=== PATIENT | female | born 2005 | race Caucasian/White ===

== ENCOUNTER 2023-04-07 12:21 | Emergency (ER) | payer OTHER, SELFPAY ==
[2023-04-07 12:31] VITALS: BP 113/91; PULSE 70; RESP 17; TEMP 36.5; O2SAT 96
[2023-04-07 14:30] VITALS: BP 122/50; PULSE 88; RESP 18; TEMP 36.1; O2SAT 98
--- NOTE | 2023-04-07 14:30 | PC.NURSE ---
Pt brought back to room 18 to be evaluated by SHIFTMAN
--- NOTE | 2023-04-07 14:38 | ED.SKABFB ---
HPI - Skin/Abscess/Foreign Bdy General Chief complaint: Skin/Abscess/Foreign Body Stated complaint: possible spider bite Time Seen by Provider: 04/07/23 14:37 Source: patient Mode of arrival: ambulatory Limitations: no limitations History of Present Illness HPI narrative: Chastity is a 17 year old female patient presenting to the ED with c/o a possible spider bite to the right posterior thigh. She reports she noticed the bite approx 3-4 days ago. Also reports fever, nausea, and vomiting. Denies any abdomen pain just soreness from dry heaving today. Vomited 6 times total yesterday but non-today. Patient did not measure her temp but felt feverish. She denies any urinary symptoms. Last BM was yesterday and normal. Was seen in [facility] and they sent her here as they can not due labs. Related Data Allergies Allergy/AdvReac Type Severity Reaction Status Date / Time No Known Allergies Allergy Verified 04/07/23 14:32 Review of Systems Review of Systems: All systems reviewed & are unremarkable except as noted in HPI and below Exam Const: General: healthy appearing, no acute distress and alert HENMT: Head: normal to inspection Ears: external ears normal Face/Nose/Sinus: Normal external nose present and Normal nares present Face and sinus: normal facial exam Mouth: Yes Normal oral and palatal mucosa present and Yes moist mucous membranes Teeth and gingiva: dentition normal Throat: posterior oropharynx normal and uvula midline Eyes: Conjunctivae: conjunctivae normal Pupils: Equal, round and reactive pupils present EOM: EOMs intact bilaterally Direct Ophthalmoscopy: no photophobia Neck: Neck: normal visual inspection and no lymphadenopathy Chest: Chest palpation & inspection: normal inspection of the chest Resp: Effort & Inspection: normal respiratory effort Cardio: Rate: regular rate Rhythm: regular rhythm Other: no murmur, s1 and s2 normal GI: GI Palp: Yes Soft to palpation Auscultation: normal bowel sounds Other: soft, non-distended, generalized tenderness to palpation, non tender to palpation over bladder, no CVAT tenderness, no organomegly. Skin: General skin exam: normal color Rashes: no rashes Wounds: wounds noted Other: right posterior lateral thigh with redness and open blistered like area measuring approx [id number]. No obvious drainage at this time. Itching and mild tenderness to palpation, no induration. Course Vital Signs Vital signs: Vital Signs Temperature 36.5 C 04/07/23 12:31 Pulse Rate 70 04/07/23 12:31 Respiratory Rate 17 04/07/23 12:31 Blood Pressure 113/91 H 04/07/23 12:31 Pulse Oximetry 96 04/07/23 12:31 Oxygen Delivery Room Air 04/07/23 12:31 Temperature 36.1 C L 04/07/23 14:30 Pulse Rate 88 04/07/23 14:30 Respiratory Rate 18 04/07/23 14:30 Blood Pressure 122/50 L 04/07/23 14:30 Pulse Oximetry 98 04/07/23 14:30 Oxygen Delivery Room Air 04/07/23 12:31 MDM - Skin/Abscess/Foreign Bdy MDM Narrative Medical decision making narrative: At the time of visit patient is resting in the exam room. Area of concern is non-indurated, mild red without present discharge. CBC,CMP performed to check for electrolyte imbalance/infection. No urinary symptoms so urine was not tested at this time. CBC and CMP unremarkable. Will discharge home with mupirocin cream and zofran. Return precautions were reviewed with patient. Supportive measures were discussed and she voiced understanding of discharge instructions. Differential Diagnosis Differential diagnosis: Likely abscess of skin or subcutaneous tissue, urticaria, cellulitis, eczema, insect bites, contact dermatitis and other (acute nausea and vomiting) Lab Data 04/07/23 14:42 04/07/23 14:42 Labs: Lab Results 04/07/23 Range/Units 14:42 WBC 7.3 (4.5-10.0) K/mm3 RBC 4.84 (4.2-5.4) M/mm3 Hgb 13.0 (12.0-15.0) g/dL Hct 40.1 (37.0-47.0) % MCV 82.9
[2023-04-07] MEDS: ONDANSETRON HCL ODT 4 MG TABLET PO (14:43)
[2023-04-07 14:52] LABS: Basophils Absolute Auto 0.1 K/mm3 (0.0-0.1); Basophils Percent Auto 1.1 % (0.2-1.2); Eosinophils Absolute Auto 0.5 K/mm3 (0-0.3); Eosinophils Percent Auto 6.6 % (0-4.4); Hematocrit 40.1 % (37.0-47.0); Immature Granulocyte Absolute 0.02 K/mm3 (0.00-0.031); Immature Granulocyte Percent A 0.3 % (0-0.5); Lymphocytes Absolute Auto 2.46 K/mm3 (0.9-3.2); Lymphocytes Percent Auto 33.8 % (18.3-44.2); Mean Corpuscular HGB Conc 32.4 g/dl (32-36); Mean Corpuscular Hemoglobin 26.9 pg (26-34); Mean Corpuscular Volume 82.9 fl (80-100); Mean Platelet Volume 9.7 fl (7.4-10.4); Monocytes Absolute Auto 0.8 K/mm3 (0.1-0.6); Monocytes Percent Auto 11.1 % (2.6-8.5); Neutrophils Absolute Auto 3.4 K/mm3 (1.3-6.7); Neutrophils Percent Auto 47.1 % (45.5-73.1); Platelet Count Result 221 k/mm3 (150-375); Red Blood Count 4.84 M/mm3 (4.2-5.4); Red Cell Distribution Width 12.9 % (11.5-14.5); White Blood Count 7.3 K/mm3 (4.5-10.0)
[2023-04-07 15:02] LABS: Alanine Aminotransferase 19 U/L (6-35); Albumin Level 4.6 g/dL (3.7-5.6); Alkaline Phosphatase 52 U/L (45-116); Anion Gap 7 mmol/L (8-16); Aspartate Amino Transferase 23 U/L (14-36); Bilirubin,Total 0.9 mg/dL (0.2-1.3); Blood Urea Nitrogen 9 mg/dL (8-21); Calcium 8.8 mg/dL (8.9-10.7); Carbon Dioxide 26 mmol/L (22-30); Chloride 105 mmol/L (98-107); Estimated CRCL calculation 89 ml/min; Estimated Glomerular Filt Rate > 60; Glucose 86 mg/dL (65-110); Potassium 3.7 mmol/L (3.4-5.0); Sodium 138 mmol/L (134-143)
== END 2023-04-07 15:34 | disposition home or self-care (01) ==
LOC: ANHED 15:30
PROVIDERS: Emergency Provider Nurse Practitioner Family
DX: R11.2 Nausea with vomiting, unspecified (principal); S70.921A Unspecified superficial injury of right thigh, initial encounter; L08.9 Local infection of the skin and subcutaneous tissue, unspecified; W57.XXXA Bitten or stung by nonvenomous insect and other nonvenomous arthropods, initial encounter
CPT/HCPCS: 36415; 80053; 85025; 99283; A9270

== ENCOUNTER 2023-04-13 12:55 | Emergency (ER) | payer OTHER, SELFPAY ==
[2023-04-13 12:57] VITALS: BP 118/75; PULSE 90; RESP 16; TEMP 36.4; O2SAT 98
--- NOTE | 2023-04-13 15:33 | ED.GENADULT ---
HPI - General Adult General Chief complaint: Wound/Laceration Stated complaint: wound Time Seen by Provider: 04/13/23 13:23 Source: patient Mode of arrival: ambulatory Limitations: no limitations History of Present Illness HPI narrative: This is a 18-year-old female with PMH of POTS who presents to the ED with chief complaint of right posterior thigh rash for the past week. Reports the area is itchy and painful. She was initially seen here and was given topical antibiotics for possible bug bite. She states that she only had 1 lesion at that time. Reports she has had several lesions pop up throughout the right posterior thigh and leg since then. Reports that the lesions will blister and then pop. Denies any further site of rash. Denies fevers, chills, abdominal pain, nausea, vomiting, LOC. She gives additional history of possible allergic reaction to mold that is in her building at [employer]. She states she has a high sensitivity to mold and thinks it may have been in the bathroom. Related Data Allergies Allergy/AdvReac Type Severity Reaction Status Date / Time No Known Allergies Allergy Verified 04/07/23 14:32 Review of Systems Review of Systems: All systems as dictated in HPI Exam Narrative: GENERAL: Well-appearing, well-nourished, and in no acute distress. HEAD: Normocephalic, atraumatic. EYES: PERRLA and EOMI. ENT: Nares clear, no rhinorrhea or epistaxis. Mucous membranes moist. Oropharynx without tonsillar hypertrophy exudate or other lesions. NECK: Supple. No adenopathy or masses. CHEST: No respiratory distress. Clear to auscultation. No wheezes rales or rhonchi HEART: Regular rate and rhythm. No murmur heard. Normal peripheral pulses. ABDOMEN: Soft, nontender, nondistended, normal active bowel sounds. MSK: Normal range of motion. No edema. SKIN: There are scattered patient healed maculopapular lesions to the right posterior thigh. No surrounding erythema. No petechiae or purpura. There is 1 lesion to the left posterior thigh as well. NEURO: Alert and oriented x3. No focal deficits. PSYCH: Normal mood and affect. Course Vital Signs Vital signs: Vital Signs Temperature 97.6 F 04/13/23 12:57 Pulse Rate 90 04/13/23 12:57 Respiratory Rate 16 04/13/23 12:57 Blood Pressure 118/75 04/13/23 12:57 Pulse Oximetry 98 04/13/23 12:57 Oxygen Delivery Room Air 04/13/23 12:57 Temperature 97.6 F 04/13/23 12:57 Pulse Rate 90 04/13/23 12:57 Respiratory Rate 16 04/13/23 12:57 Blood Pressure 118/75 04/13/23 12:57 Pulse Oximetry 98 04/13/23 12:57 Oxygen Delivery Room Air 04/13/23 12:57 Medical Decision Making MDM Narrative Medical decision making narrative: This is a 18-year-old female who presents to the ED with chief complaint of right posterior leg rash. Vitals are normal. Exam reveals healed maculopapular lesions to the right posterior thigh. No surrounding erythema, tenderness. No signs of infection. She does indicate that she has high sensitivity to mold and feels that her college apartment has mold in the house. No other new changes to medications, topical lotions etc. No other recent exposures that she knows of. Denies tick bites. Denies any concern for STD. Symptoms are consistent with contact dermatitis. Prescription for Medrol Dosepak written. Instructed to follow-up with PCP/Health. Return precautions were given. Patient is understanding and agreeable with plan for discharge and follow-up with PCP and possibly dermatology. Vital Signs Vital Signs: Vital Signs Temperature 97.6 F 04/13/23 12:57 Pulse Rate 90 04/13/23 12:57 Respiratory Rate 16 04/13/23 12:57 Blood Pressure 118/75 04/13/23 12:57 Pulse Oximetry 98 04/13/23 12:57 Oxygen Delivery Room Air 04/13/23 12:57 Temperature 97.6 F 04/13/23 12:57 Pulse Rate 90 04/13/23 12:57 Respiratory Rate 16 04/13/23 12:57 Blood Pressure 118/75 04/13/23 12:57 Puls
== END 2023-04-13 16:10 | disposition home or self-care (01) ==
PROVIDERS: Emergency Provider Physician Assistant
DX: L30.9 Dermatitis, unspecified (principal); G90.A Postural orthostatic tachycardia syndrome [POTS]
CPT/HCPCS: 99283